=== PATIENT | male | born 1995 | race Caucasian/White ===

== ENCOUNTER 2017-07-29 02:31 | Emergency (ER) | payer SELFPAY ==
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
[2017-07-29] MEDS ORDERED: BESIFLOXACIN HCL 0.6% OPH SUSP 5 ML BOTTLE OS ONE (04:56)
[2017-07-29] MEDS ORDERED: HYDROCODONE/ACETAMINOPHEN 5-325 MG (6 TAB/ER DISP) PO PRN (05:08)
[2017-07-29 05:32] VITALS: BP 133/70
== END 2017-07-29 05:25 | disposition home or self-care (01) ==
LOC: EDBD → ER 02:31
DX: S05.92XA Unspecified injury of left eye and orbit, initial encounter (principal); W20.8XXA Other cause of strike by thrown, projected or falling object, initial encounter; Z88.0 Allergy status to penicillin
CPT/HCPCS: 99283